=== PATIENT | female | born 1965 | race Caucasian/White ===

== ENCOUNTER 2018-08-19 15:45 | Emergency (ER) | payer BC ==
[2018-08-19] MEDS ORDERED: Ipratropium 0.5MG/2.5ML NEB* 0.5 MG/2.5 ML NEB.SOLN INH ONE (15:55)
[2018-08-19] MEDS ORDERED: Albuterol 2.5 MG/3 ML NEB.SOL* (0.083%) INH ONE (15:55)
[2018-08-19 16:00] VITALS: BP 129/83
--- NOTE | 2018-08-19 16:11 | UC ---
Respiratory Complaint HPI - HPI Summary HPI Summary: The patient is a 53-year-old female with a 2 week history of progressively worsening cough associated with shortness of breath. She denies any fever or chills. She has chest discomfort when she is coughing. She has been unable to bring up any phlegm. She has been relying on her rescue inhaler more frequently than normal. She is a smoker. She has been advised to stop multiple times in the past. She often gets bronchitis. - History of Current Complaint Chief Complaint: UCRespiratory Stated Complaint: SHORTNESS OF BREATH Time Seen by Provider: 08/19/18 15:51 Hx Obtained From: Patient Hx Last Menstrual Period: solution professional Onset/Duration: Gradual Onset, Lasting Weeks, Worse Since - days Timing: Constant Severity Initially: Mild Severity Currently: Moderate Pain Intensity: 0 Pain Scale Used: 0-10 Numeric Character: Cough: Nonproductive Aggravating Factors: Exertion, Deep Breaths, Recumbent Position Alleviating Factors: Bronchodilator Associated Signs And Symptoms: Positive: Wheezing - Allergies/Home Medications Allergies/Adverse Reactions: Allergies Allergy/AdvReac Type Severity Reaction Status Date / Time erythromycin base Allergy Itching, Verified 08/19/18 16:01 rash Latex, Natural Rubber Allergy itching, Verified 08/19/18 16:01 rash Penicillins Allergy Hives Verified 08/19/18 16:01 ranitidine [From Zantac] Allergy Unknown Verified 08/19/18 16:01 Reaction Details Sulfa (Sulfonamide Allergy Hives Verified 08/19/18 16:01 Antibiotics) PMH/Surg Hx/FS Hx/Imm Hx Cardiovascular History: Hypertension Respiratory History: Asthma, Bronchitis - Surgical History Surgical History: Yes Surgery Procedure, Year, and Place: RIGHT ANKLE FRACTURE REPAIR. HYSTERECTOMY, , [facility]. [place] [facility] [place] History Known Family History: Positive: Hypertension - Social History Alcohol Use: Weekly Alcohol Amount: 1 PER WEEK Substance Use Type: None Smoking Status (MU): Light Every Day Tobacco Smoker Amount Used/How Often: 10 CIGS PER DAY Have You Smoked in the Last Year: Yes Review of Systems Constitutional: Fatigue Skin: Negative Eyes: Negative ENT: Negative Respiratory: Shortness Of Breath, Cough Cardiovascular: Negative Gastrointestinal: Negative Genitourinary: Negative Motor: Negative Neurovascular: Negative Musculoskeletal: Negative Neurological: Negative Psychological: Negative All Other Systems Reviewed And Are Negative: Yes Physical Exam Triage Information Reviewed: Yes Appearance: Well-Appearing, No Pain Distress, Well-Nourished Vital Signs: Initial Vital Signs Temp 98.9 F 08/19/18 15:56 Pulse 90 08/19/18 15:56 Resp 18 08/19/18 15:56 BP 129/83 08/19/18 15:56 Pulse Ox 98 08/19/18 15:56 Vital Signs Reviewed: Yes Eyes: Positive: Conjunctiva Clear ENT: Positive: Hearing grossly normal, Uvula midline. Negative: Nasal congestion, Nasal drainage, Trismus, Muffled voice, Hoarse voice Neck: Positive: Supple, Nontender, No Lymphadenopathy Respiratory: Positive: Chest non-tender, No respiratory distress, No accessory muscle use, Wheezing Cardiovascular: Positive: RRR, No Murmur Musculoskeletal: Positive: ROM Intact, No Edema Neurological: Positive: Alert Psychological Exam: Normal Skin Exam: Normal UC Diagnostic Evaluation - Laboratory O2 Sat by Pulse Oximetry: 98 - normal/not hypoxic Re-Evaluation - Re-Evaluation First Eval Re-Evaluation Time: 16:32 Change: Improved - lungs CTA Respiratory Course/Dx - Differential Dx/Diagnosis Provider Diagnoses: acute bronchitis with bronchospasm Discharge - Sign-Out/Discharge Documenting (check all that apply): Patient Departure All imaging exams completed and their final reports reviewed: No Studies - Discharge Plan Condition: Stable Disposition: HOME Patient Education Materials: Acute Bronchitis (ED), Bronchospasm (ED) Referrals: Danielle Red NP [Primary Care Provider] - 5 Days Additional Instructions: use proair inhaler as instructed recheck for new or worsening symptoms STOP SMOKING - Billing Disposition and Condition Condition: STABLE Disposition: Home
[2018-08-19] MEDS ORDERED: predniSONE TAB* 20 MG PO ONE (16:30)
== END 2018-08-19 16:53 | disposition home or self-care (01) ==
LOC: UCEAST 15:45
DX: J20.9 Acute bronchitis, unspecified (principal); Z88.0 Allergy status to penicillin; Z88.2 Allergy status to sulfonamides; Z88.8 Allergy status to other drugs, medicaments and biological substances; Z88.1 Allergy status to other antibiotic agents; Z91.040 Latex allergy status; F17.210 Nicotine dependence, cigarettes, uncomplicated
CPT/HCPCS: 99212; G0463; J7512